=== PATIENT | male | born 1960 | race Caucasian/White ===

== ENCOUNTER 2024-10-09 10:24 | Day surgery (SDC) | payer OTHER, MEDICARE ==
[2024-10-09 08:26] LABS: Absolute Lymphocytes (CBC) 1.9 K/uL (0.7-4.9); Hematocrit 47.7 % (39.6-49.0); Hemoglobin 16.0 g/dL (13.6-17.9); MCH 29.0 pg (27.0-35.0); MCHC 33.4 g/dL (32.0-36.0); MCV 86.7 fL (80-100); MPV 8.0 fL (7.6-11.3); Nucleated RBC Absolute Count 0.0 (0-0); Nucleated Red Blood Cells % 0.1 % (0-0); RBC Red Blood Cell Count 5.50 M/uL (4.33-5.43); White Blood Count 5.70 thou/uL (4.3-10.9)
[2024-10-09 08:35] LABS: Anion Gap 4.2 mEq/L (5.0-15.0); BUN Blood Urea Nitrogen 19.0 mg/dL (7-18); Glucose Level 100.0 mg/dL (74-106); Potassium 4.2 mEq/L (3.5-5.1)
[2024-10-09] MEDS: Ringers Lactate 1,000 ML IV ONE (10:40)
[2024-10-09] MEDS ORDERED: MIDAZOLAM HCL 2 MG/2 ML INJ ONE (12:31)
[2024-10-09] MEDS ORDERED: LIDOCAINE 2% MPF 5 ML VIAL ONE (12:31)
[2024-10-09] MEDS ORDERED: FENTANYL CITR 100 MCG/2 ML ONE ×2 (12:31→12:33)
[2024-10-09] MEDS: CIPROFLOXACIN 400mg IV 400 MG/200 ML BAG IV ONE (13:22)
[2024-10-09] MEDS ORDERED: EPHEDRINE SULF 50 MG/ML VIAL ONE (13:32)
[2024-10-09] MEDS ORDERED: ONDANSETRON 4 MG/2 ML VIAL ONE (13:37)
[2024-10-09] MEDS: Mastisol Adhesive Liq ONE (13:41)
--- NOTE | 2024-10-09 13:43 | P.BOP ---
Preoperative diagnosis: hx of colon cancer Postoperative diagnosis: same Primary procedure: Removal of portacath Estimated blood loss: <10cc Specimen: intact portacath Findings: as above Anesthesia: General Complications: None Transferred to: Recovery Room Condition: Good
--- NOTE | 2024-10-09 13:52 | RAD REPORT ---
EXAMINATION: TWO VIEW CHEST XR CLINICAL INDICATION: Male, 64 years old. Hypertension. pre op for day surgery TECHNIQUE: 2 view radiographs of the chest were performed. COMPARISON: No prior exam. FINDINGS: The lungs are well inflated and clear. No pneumothorax or sizable effusion. The heart is normal in si ze. Mediastinal contours are unremarkable. IMPRESSION: No acute or significant abnormalities.
[2024-10-09 15:18] VITALS: BP 119/79; TEMP 97.4; O2SAT 95
--- NOTE | 2024-10-09 15:31 | OP ---
Date of Procedure: 10/09/2024 Surgeon: Ethan Baker MD Preoperative Diagnosis: History of colon cancer. Postoperative Diagnosis: History of colon cancer. Procedure: Removal of Port-A-Cath. Estimated Blood Loss: Less than 10 cc. Specimen: Intact Port-A-Cath. Anesthesia: General plus local. Indications: This is the case of a 64-year-old patient who came to us after receiving treatment for colon cancer. He is in no need of a Port-A-Cath anymore, so he wants that removed. Benefits, altern atives, and risks of excision fully explained, which include, but not limited to, infection, bleeding , damage to adjacent structures, anesthesia complication, DVT, PE, NC, and even . He also under stands this may not relieve any symptoms, he might need more than one surgical intervention. He unde rstood, signed a consent. Description Of Procedure: Patient was brought to the operating room, placed in supine position. Ane sthesia was induced without complication. Right chest was prepped and draped in a sterile fashion. Local anesthesia was applied followed by sharp incision of the skin. Incision was carried down until we found the capsule of the Port-A-Cath. Capsule was carefully opened. The Port-A-Cath was in a po ol after dissected under another system. It came out intact. Pressure was applied for about 10-15 m inutes. Subcutaneous tissue closed with 3-0 chromic and then subcuticular closed with 3-0 chromic an d Steri-Strips on top. Sponge counts and instrument counts were correct. The patient tolerated the procedure well. The patient sent to recovery in stable condition . FELIPE/IAIN Voice ID: [id number] Report ID: [id number]
--- NOTE | 2024-10-09 15:36 | DS ---
Diagnosis: History of colon cancer. Procedure: Removal of Port-A-Cath. Condition: Stable. Disposition: Home. Activity: As tolerated. No heavy lifting. Discharge Instructions: Follow up in my office in 1 week. Call for appointment at [phone]. Keep a chris dry for 48 hours, then may shower. Keep Steri-Strip intact. FELIPE/IAIN Voice ID: [id number] Report ID: [id number]
== END 2024-10-09 14:45 | disposition home or self-care (01) ==
LOC: OR 10:24
PROVIDERS: ATTEND Surgery
PROC: 0JH60WZ Insertion of Totally Implantable Vascular Access Device into Chest Subcutaneous Tissue and Fascia, Open Approach (ICD-10-PCS; principal; 2024-10-09 12:45)
DX: C18.9 Malignant neoplasm of colon, unspecified (principal)
CPT/HCPCS: 93005; 85025; 80048; 36415; 88300; 71046; 36561; J2704; J1100; J2003; J2250; J3010; J2405; J0744; J7120